=== PATIENT | female | born 1990 | race Hispanic/Latino ===

== ENCOUNTER 2024-10-10 21:47 | Emergency (ER) | payer BC, OTHER ==
[~2024-10-10] VITALS: Ht 154.9 cm; Wt 72.6 kg
[~2024-10-10 21:47] MED LIST: IBUPROFEN600 MG PO; METHOCARBAMOL750 MG PO
[2024-10-10] MEDS ORDERED: ONDANSETRON HCL INJ 2MG/ML 2ML 2 MG/ML VIAL IV STA (21:54)
[2024-10-10] MEDS ORDERED: ONDANSETRON HCL 4 MG ORAL DISINTEGRATING TAB ONE (21:57)
[2024-10-10] MEDS: ONDANSETRON HCL 4 MG ORAL DISINTEGRATING TAB PO ONE (21:59)
[2024-10-10 22:27] LABS: CLARITY,URINE CLEAR (CLEAR); COLOR,URINE YELLOW (YELLOW); PH,URINE 7 (5 - 7)
[2024-10-10 22:28] LABS: BILIRUBIN,URINE NEGATIVE (NEGATIVE); GLUCOSE, URINE NEGATIVE (NEGATIVE); KETONES,URINE NEGATIVE (NEGATIVE); LEUKOCYTE ESTERASE ,URINE NEGATIVE (NEGATIVE); NITRITE,URINE NEGATIVE (NEGATIVE); PREGNANCY TEST, URINE NEGATIVE (NEGATIVE); PROTEIN,URINE DIPSTICK 1+ (NEGATIVE); URINE UROBILINOGEN 0.2 mg/dL (0.2 - 1)
[2024-10-10 22:41] LABS: BACTERIA,URINE MANY /HPF; EPITHELIAL CELLS,URINE MANY /LPF
[2024-10-10] MEDS ORDERED: KETOROLAC TROMETHAMINE 60 MG/2 ML VIAL ONE (22:50)
[2024-10-10] MEDS: KETOROLAC TROMETHAMINE 60 MG/2 ML VIAL IM ONE (22:52)
[2024-10-11 01:55] VITALS: PULSE 60; RESP 19; TEMP 98.5
[2024-10-11 02:08] VITALS: BP 116/75; PULSE 60; RESP 19; TEMP 98.5; O2SAT 97
[2024-10-11] MEDS ORDERED: KETOROLAC TROME10 MG PO (02:11)
[2024-10-11] MEDS ORDERED: FLOMAX0.4 MG PO (02:11)
[2024-10-11] MEDS ORDERED: ONDANSETRON ODT4 MG SL (02:11)
[2024-10-11] MEDS ORDERED: CEFDINIR300 MG PO (02:11)
== END 2024-10-11 02:27 | disposition home or self-care (01) ==
LOC: ER 21:53
DX: R30.0 Dysuria (principal); N13.2 Hydronephrosis with renal and ureteral calculous obstruction; K57.90 Diverticulosis of intestine, part unspecified, without perforation or abscess without bleeding; M54.50 Low back pain, unspecified; R10.2 Pelvic and perineal pain; I10 Essential (primary) hypertension
CPT/HCPCS: 74176; 81001; 81025; 87086; 99283; J1885; Q0162